=== PATIENT | male | born 1970 | race Caucasian/White ===

== ENCOUNTER 2024-03-24 10:50 | Emergency (ER) | payer SELFPAY ==
[2024-03-24 11:04] VITALS: PULSE 85; TEMP 98.1; O2SAT 97
--- NOTE | 2024-03-24 11:47 | ERPHSYRPT ---
- History of Present Illness Time Seen by Provider: 03/24/24 11:30 Source: patient Exam Limitations: no limitations Patient Subjective Stated Complaint: sore throat for a couple of days Triage Nursing Assessment: Pt brought to the ER by his girlfriend, hypotensive, rates throat pain as 6/10, pulses normal, skin n/w/d, denies N&V, hard to swallow, hx of strep throat, has had a headache but not now, doesn't appear to be in any distress, pt also c/o of left hand 4th finger with difficulty straightening it Physician History: Pt states for the past 5 - 8 days he has had a sore throat; denies chest pain, vomiting, shortness of air. Pt also has had difficulty straightening his left ring finger for the past 2 months and denies trauma. Allergies/Adverse Reactions: No Known Drug Allergies Allergy (Verified 03/24/24 11:04) Hx Influenza Vaccination/Date Given: Yes Hx Pneumococcal Vaccination/Date Given: Yes Travel Risk - International Travel Have you traveled outside of the country in past 3 weeks: No - Emerging Infectious Disease Are you exhibiting symptoms associated with any current EIDs: No - Review of Systems Ears, Nose, & Throat: Throat Pain Respiratory: No Dyspnea Cardiac: No Chest Pain Abdominal/Gastrointestinal: No Vomiting Skin: No Rash - Past Medical History Pertinent Past Medical History: Yes Cardiac History: High Cholesterol, Hypertension Endocrine Medical History: Diabetes Type II Psycho-Social History: Depression, Other Other Medical History: schitzophrenic, ocd, suicidal attempts - Past Surgical History Past Surgical History: Yes Gastrointestinal: Hernia Repair Other Surgical History: rotator cuff right side - Social History Smoking Status: Current every day smoker Exposure to second hand smoke: Yes Drug Use: marijuana - Social Determinants of Health Will the patient participate in the screening: Yes Do you worry about a steady place to live?: No Do you have any problems with any of the following?: No known problems In the past 12 months,have you had to go without utilities?: No Transportation Issues: No Has anyone in your support network made you feel unsafe?: No Have you or anyone in your house had to go without enough: No - Nursing Vital Signs Nursing Vital Signs: Initial Vital Signs Temperature 98.1 F 03/24/24 10:54 Pulse Rate 85 03/24/24 10:54 Blood Pressure 97/72 03/24/24 10:54 O2 Sat by Pulse Oximetry 97 03/24/24 10:54 Pain Scale Pain Intensity 6 - Physical Exam General Appearance: alert Eye Exam: right eye: EOMI Ear Exam: bilateral ear: TM red (mild) Nasal Exam: normal inspection Throat Exam: No pharynx normal (pharynx erythematous) Neck Exam: normal inspection Cardiovascular/Respiratory Exam: normal breath sounds, heart sounds normal Neurologic Exam: alert, cooperative Skin Exam: warm, dry, other (left ring finger has full passive extension/flexion without erythema; good sensation & capillary refill; no active extension.) SpO2 Interpretation: normal SpO2: 97 O2 Delivery: Room Air - Course Nursing assessment & vital signs reviewed: Yes - Progress Counseled pt/family regarding: diagnosis, need for follow-up - Departure Departure Disposition: Home Clinical Impression: BOM (bilateral otitis media), Pharyngitis Condition: Stable Critical Care Time: No Referrals: DOCTOR,NO FAMILY [Primary Care Provider] - Follow up/PCP as directed Instructions: Sore Throat, Adult (DC) Additional Instructions: Follow up with private doctor concerning your left ring finger. Prescriptions: Azithromycin 250 mg [Zithromax 250 MG TABLET] 250 mg PO ZPACK #6 tablet
[2024-03-24] MEDS ORDERED: TYLENOL 325 MG ONE (11:58)
[2024-03-24] MEDS ORDERED: Zithromax 250 MG TABLET ONE (11:59)
[2024-03-24] MEDS: Zithromax 250 MG TABLET PO ONE (11:59)
[2024-03-24] MEDS: TYLENOL 325 MG PO ONE (12:00)
[2024-03-24 12:15] VITALS: BP 102/75
== END 2024-03-24 12:18 | disposition home or self-care (01) ==
LOC: ED 10:50
DX: J02.9 Acute pharyngitis, unspecified (principal); H66.93 Otitis media, unspecified, bilateral; E78.5 Hyperlipidemia, unspecified; I10 Essential (primary) hypertension; E11.9 Type 2 diabetes mellitus without complications; Z79.899 Other long term (current) drug therapy; Z72.0 Tobacco use
CPT/HCPCS: 99282; A9270-GY